=== PATIENT | male | born 1950 | race African-American/Black ===

== ENCOUNTER 2019-10-03 11:26 | Day surgery (SDC) | payer MEDICARE, MEDICAID ==
[~2019-10-03] VITALS: Ht 182.9 cm; Wt 102.4 kg
[~2019-10-03 11:26] MED LIST: ASPI81TA52 PO; CINA30TA PO; CYCL-1 PO; DIPH25CA83 PO; GABA-532 PO; LEVO125T PO; SEVE800T8 PO; TRAM100T27 PO; WARF6TAB49 PO
[2019-10-03] MEDS ORDERED: normal saline 1000ml 1,000 ML IV SCH (12:00)
--- NOTE | 2019-10-03 12:10 | NUR ---
RAPID COVID TEST COMPLETED, SENT TO LAB. Addendum: 10/03/19 at 1441 by Stephie Sanchez RN Amended: Links added.
[2019-10-03 12:30] VITALS: BP 112/57
[2019-10-03] MEDS ORDERED: ceFAZolin 2gm in dextrose, iso 50 ML IV ONE (12:45)
[2019-10-03] MEDS ORDERED: MIDO2.5T14 PO (12:51)
[2019-10-03] MEDS ORDERED: APIX5TAB3 PO (12:52)
[2019-10-03] MEDS ORDERED: CYCL-1 PO (12:53)
[2019-10-03] MEDS ORDERED: heparin 1,000unit/ml 10ml vial 10 ML ONE (14:27)
[2019-10-03] MEDS ORDERED: midazolam 2 mg/2 ml injection ONE (14:28)
[2019-10-03] MEDS ORDERED: fentaNYL/PF 50MCG/1 ML 2ML syringe ONE (14:28)
[2019-10-03] MEDS ORDERED: LIDOcaine 1%/PF 5ML 10 MG/ML VIAL ONE (14:28)
[2019-10-03 15:37] VITALS: BP 97/62
[2019-10-03 16:00] VITALS: BP 107/55
== END 2019-10-03 16:25 | disposition home or self-care (01) ==
LOC: SSTAY O 11:26
PROVIDERS: ATTEND Radiology Vascular & Interventional Radiology
DX: T82.49XA Other complication of vascular dialysis catheter, initial encounter (principal); Z91.041 Radiographic dye allergy status; Z88.5 Allergy status to narcotic agent; Z79.899 Other long term (current) drug therapy; Z11.59 Encounter for screening for other viral diseases; Y83.8 Other surgical procedures as the cause of abnormal reaction of the patient, or of later complication, without mention of misadventure at the time of the procedure; Y92.89 Other specified places as the place of occurrence of the external cause
CPT/HCPCS: 36581; 77001; 87635; C1750; C1769; C9803; J1644; J2250; J3010; A9270

== ENCOUNTER 2020-05-16 06:53 | Day surgery (SDC) | payer MEDICARE, MEDICAID ==
[2020-05-16] VITALS (11 sets, daily range): BP systolic 111–152; BP diastolic 58–88
[~2020-05-16] VITALS: Ht 170.2 cm; Wt 98.9 kg
[~2020-05-16 06:53] MED LIST changes: +APIX5TAB3 PO; -ASPI81TA52 PO; +MIDO2.5T14 PO; -WARF6TAB49 PO
[2020-05-16] MEDS ORDERED: normal saline 1000ml 1,000 ML IV PRN (07:45)
[2020-05-16] MEDS ORDERED: tPA-cathflo 2 MG/2 ml IV flush ONE ×2 (08:08→12:22)
[2020-05-16] MEDS ORDERED: fentaNYL/PF 50MCG/1 ML 2ML syringe ONE ×2 (11:17→12:47)
[2020-05-16] MEDS ORDERED: heparin 1,000 UNITS/NS 500ml 500 ML ONE ×2 (11:17→12:48)
[2020-05-16] MEDS ORDERED: LIDOcaine 1%/PF 5ML 10 MG/ML VIAL ONE (11:17)
[2020-05-16] MEDS ORDERED: midazolam 1 mg/ML 2ml injection ONE ×2 (11:17→12:46)
[2020-05-16] MEDS ORDERED: iohexol 300mg/ml 100ml inj. ONE ×2 (11:18→12:48)
[2020-05-16] MEDS ORDERED: methylPREDNISolone sod succ 125mg/2ml vial IV ONE (11:25)
[2020-05-16] MEDS ORDERED: diphenhydrAMINE 50 mg/ml inj IV ONE (11:25)
--- NOTE | 2020-05-16 11:29 | NUR ---
pt's chart states allergic to contrast, pt has no recall of a reaction. call to Laura, confirmed pt get hives and itching from iodine, he usually gets prednisone and benadryl pre procedure. Call made to IR report to RN pt's 's report. also confirmed pt took eliquis x2 yesterday a.m. and p.m. dose Addendum: 05/16/20 at 1132 by Stephie Sanchez RN Amended: Links added.
[2020-05-16] MEDS ORDERED: methylPREDNISolone sod succ 125mg/2ml vial ONE (11:30)
[2020-05-16] MEDS ORDERED: diphenhydrAMINE 50 mg/ml inj ONE (11:30)
[2020-05-16] MEDS ORDERED: normal saline 1000ml 1,000 ML IV SCH (13:50)
[2020-05-17] MEDS ORDERED: ATOR40TA71 PO (13:22)
[2020-05-17] MEDS ORDERED: vicodin PO (13:22)
== END 2020-05-16 16:40 | disposition home or self-care (01) ==
LOC: SSTAY O 06:53
PROVIDERS: ATTEND Radiology Vascular & Interventional Radiology
DX: T82.868A Thrombosis due to vascular prosthetic devices, implants and grafts, initial encounter (principal); E11.22 Type 2 diabetes mellitus with diabetic chronic kidney disease; N18.9 Chronic kidney disease, unspecified; Z79.899 Other long term (current) drug therapy; Z88.5 Allergy status to narcotic agent; Z88.8 Allergy status to other drugs, medicaments and biological substances; Z95.1 Presence of aortocoronary bypass graft; Z98.890 Other specified postprocedural states; Z72.89 Other problems related to lifestyle; Y83.2 Surgical operation with anastomosis, bypass or graft as the cause of abnormal reaction of the patient, or of later complication, without mention of misadventure at the time of the procedure; Y92.89 Other specified places as the place of occurrence of the external cause
CPT/HCPCS: 36905; 82948; 99152; 99153; C1725; C1769; C1894; J1200; J1644; J2250; J2930; J2997; J3010; J7030; Q9967

== ENCOUNTER → 2020-05-17 | Day surgery (SDC) | payer MEDICARE, MEDICAID ==
[~2020-05-17] VITALS: Ht 167.6 cm; Wt 103.9 kg
[~2020-05-17] MED LIST changes: +ATOR40TA71 PO; +LIDOcaine 1%/PF 5ML 10 MG/ML VIAL ONE; +fentaNYL/PF 50MCG/1 ML 2ML syringe ONE; +gelatin sponge, absorbable (Gelfoam 12-7MM) sponge TP ONE; +heparin 1,000unit/ml 10ml vial 10 ML ONE; +midazolam 1 mg/ML 2ml injection ONE; +normal saline 1000ml 1,000 ML IV SCH; +vicodin PO
[2020-05-17 15:09] VITALS: BP 141/84
[2020-05-17 15:30] VITALS: BP 116/68
[2020-05-17 16:00] VITALS: BP 125/72
[2020-05-17 16:30] VITALS: BP 129/85
[2020-05-17 18:47] VITALS: BP 136/79
== END | disposition home or self-care (01) ==
LOC: SSTAY O 12:32
PROVIDERS: ATTEND Radiology Diagnostic Radiology
DX: T82.868A Thrombosis due to vascular prosthetic devices, implants and grafts, initial encounter (principal); Z79.01 Long term (current) use of anticoagulants; Z79.899 Other long term (current) drug therapy; Z88.5 Allergy status to narcotic agent; Z88.8 Allergy status to other drugs, medicaments and biological substances; Y83.2 Surgical operation with anastomosis, bypass or graft as the cause of abnormal reaction of the patient, or of later complication, without mention of misadventure at the time of the procedure; Y92.89 Other specified places as the place of occurrence of the external cause
CPT/HCPCS: 36558; 76937; 77001; 99152; C1750; C1769; C1894; J1644; J2250; J3010; A9270